=== PATIENT | male | born 1965 | race Caucasian/White ===

== ENCOUNTER 2017-12-21 09:13 | Outpatient (CLI) ==
--- NOTE | 2017-12-21 11:24 | CT ---
EXAM: CT abdomen pelvis with contrast HISTORY: Generalized abdominal pain COMPARISON: None TECHNIQUE: CT abdomen pelvis performed with intravenous contrast. Coronal and sagittal reformatted images obtained. FINDINGS: Mild dependent density lung bases. Granulomas calcification left lung base. Several nonc alcified pulmonary nodules at the lung bases , measuring up to 4 mm. No free air. No acute abnormal ities of the bones. Degenerative change in the spine. Heart normal in size. Liver appears normal. The patient status post cholecystectomy. Pancreas unremarkable. Spleen unremarkable. Adrenals unr emarkable. Kidneys unremarkable. Aorta normal in caliber. Minimal atherosclerotic calcification. Bladder unremarkable. Prostate normal in size. Small to moderate fat-containing right inguinal frankie ia and small fat-containing left inguinal hernia. Minimal fat-containing periumbilical hernia. No l ymphadenopathy or ascites. Stomach appears normal. No dilated loops small bowel. Appendix appears normal. There is increased submucosal fat deposition in the right and transverse colon IMPRESSION: 1. No acute abnormality identified in the abdomen or pelvis. 2. Increased submucosal fat deposition in the colon, a finding that can be seen in sequela of remote infection or inflammation. 3. Several pulmonary nodules right lung base, measuring up to [address] chest follow-up can be consi dered in 12 months if patient at high risk for malignancy, such as a smoker or former smoker. Otherw ise, no follow-up recommended.
== END 2017-12-21 09:14 | disposition home or self-care (01) ==
LOC: RAD 09:13
PROVIDERS: ATTEND Emergency Medicine
DX: R10.84 Generalized abdominal pain (principal); K52.9 Noninfective gastroenteritis and colitis, unspecified

== ENCOUNTER 2018-01-11 08:59 | Outpatient (CLI) ==
--- NOTE | 2018-01-11 10:46 | CT ---
EXAM: CT of the chest with contrast History: Follow-up right lung nodule. Comparison: CT abdomen pelvis 12/21/2017 Technique: Multiplanar CT images through the thorax were obtained following administration of IV con trast. Findings: Heart size is normal. Great vessels are unremarkable. No pathologically enlarged thoracic lymph nodes. No consolidation. No pleural fluid and no pneumothorax. Tiny sub-centimeter bilateral lung nodules measuring up to 5 mm. Within the visualized upper abdomen, the liver is fatty. Status post cholecystectomy. No acute osse ous abnormalities. Impression: 1. Sub-centimeter bilateral lung nodules are probably benign. Recommend a follow-up chest CT in 6 - 12 months to document stability. 2. No acute intrathoracic process. 3. Fatty liver
== END 2018-01-11 09:00 | disposition home or self-care (01) ==
LOC: RAD 08:59
PROVIDERS: ATTEND Nurse Practitioner Family
DX: R91.8 Other nonspecific abnormal finding of lung field (principal)